=== PATIENT | female | born 1960 | race Caucasian/White ===

== ENCOUNTER 2018-06-03 14:36 | Emergency (ER) | payer SELFPAY ==
[2018-06-03 16:38] VITALS: BP 151/90
[2018-06-03 16:38] LABS: A TYPE INFLUENZA AG NEGATIVE (NEGATIVE); B INFLUENZA AG NEGATIVE (NEGATIVE)
[2018-06-03] MEDS ORDERED: ALBUTEROL SULFATE HFA (90 MCG/PUFF) 8 GM MDI (1 MDI/ER DISP) IH PRN (16:39)
--- NOTE | 2018-06-03 16:42 | ER Document Report ---
ED Medical Screen (RME) - General Chief Complaint: Flu Symptoms Stated Complaint: FLU SYMPTOMS Time Seen by Provider: 06/03/18 16:19 Mode of Arrival: Ambulatory Information source: Patient Notes: This is a 57-year-old female who presents to the emergency room with cough, congestion, sinus pressure for 10 days. Patient does report fever. She does states she has had a history of sinusitis in the past and it feels very similar to that and it has been lasting for a while now. Patient is a smoker. She does have a history of bronchitis. Patient does have some GI intolerance to Augmentin. TRAVEL OUTSIDE OF THE [place] IN LAST 30 DAYS: No - Related Data Allergies/Adverse Reactions: amoxicillin [From Augmentin] Adverse Reaction (Verified 06/03/18 16:27) clavulanic acid [From Augmentin] Adverse Reaction (Verified 06/03/18 16:27) Past Medical History - Social History Chew tobacco use (# tins/day): No Frequency of alcohol use: None Drug Abuse: None - Past Medical History Cardiac Medical History: Reports: Hx Hypertension Renal/ Medical History: Denies: Hx Peritoneal Dialysis Past Surgical History: Reports: Hx Orthopedic Surgery - 3 neck surgeries, 2bilat knee each Physical Exam - Vital signs Vitals: Temp Pulse Resp BP Pulse Ox 98.3 F 78 18 144/87 H 100 06/03/18 14:44 06/03/18 14:44 06/03/18 14:44 06/03/18 14:44 06/03/18 14:44 Course - Vital Signs Vital signs: Temp Pulse Resp BP Pulse Ox 98.5 F 85 18 171/102 H 96 06/03/18 16:35 06/03/18 16:35 06/03/18 16:35 06/03/18 16:35 06/03/18 16:35 Doctor's Discharge - Discharge Clinical Impression: Sinusitis acute maxillary Condition: Stable Disposition: HOME, SELF-CARE Instructions: Sinusitis ([facility]) Additional Instructions: Recommendations: Take the antibiotics as prescribed. Take the Mucinex as prescribed. Using inhaler: 2 puffs every 4-6 hours for wheezing or shortness of breath. As we discussed, try simply saline nasal spray: Keep the nasal passages open to allow the sinuses to drain. Follow-up with your primary care doctor when back home. Return to the emergency room for any shortness of breath or concerns that you are getting worse. Prescriptions: Cefuroxime Axetil [Ceftin 500 mg Tablet] 1 tab PO BID #20 tablet Guaifenesin [Mucinex] 600 mg PO BID #20 tablet.sa
--- NOTE | 2018-06-03 16:52 | ER Document Report ---
ED General - General Chief Complaint: Flu Symptoms Stated Complaint: FLU SYMPTOMS Time Seen by Provider: 06/03/18 16:19 Mode of Arrival: Ambulatory Information source: Patient Notes: 57-year-old female presents to the emergency room with maxillary sinus congestion and pain for 10 days. Patient does report cough with wheezing and a postnasal drip. Patient does report subjective fevers. TRAVEL OUTSIDE OF THE [place] IN LAST 30 DAYS: No - HPI Onset: Other - Past 10 days Onset/Duration: Gradual Quality of pain: Dull Severity: Mild Pain Level: 1 Associated symptoms: Chills, Nonproductive cough, Fever, Sinus pain/drainage, Other - Met and wheezing Exacerbated by: Denies Relieved by: Denies Similar symptoms previously: Yes Recently seen / treated by doctor: No - Related Data Allergies/Adverse Reactions: amoxicillin [From Augmentin] Adverse Reaction (Verified 06/03/18 16:27) clavulanic acid [From Augmentin] Adverse Reaction (Verified 06/03/18 16:27) Past Medical History - General Information source: Patient - Social History Smoking Status: Current Every Day Smoker Cigarette use (# per day): Yes - 1 pack/day Chew tobacco use (# tins/day): No Frequency of alcohol use: None Drug Abuse: None Lives with: Family Family History: None Patient has suicidal ideation: No Patient has homicidal ideation: No - Past Medical History Cardiac Medical History: Reports: Hx Hypertension Renal/ Medical History: Denies: Hx Peritoneal Dialysis Past Surgical History: Reports: Hx Orthopedic Surgery - 3 neck surgeries, 2bilat knee each Review of Systems - Review of Systems Constitutional: Chills, Fever EENT: See HPI Cardiovascular: denies: Chest pain, Palpitations, Heart racing Respiratory: Cough, Wheezing Gastrointestinal: No symptoms reported Genitourinary: No symptoms reported Female Genitourinary: No symptoms reported Musculoskeletal: No symptoms reported Skin: No symptoms reported Hematologic/Lymphatic: No symptoms reported Neurological/Psychological: No symptoms reported Physical Exam - Vital signs Vitals: Temp Pulse Resp BP Pulse Ox 98.3 F 78 18 144/87 H 100 06/03/18 14:44 06/03/18 14:44 06/03/18 14:44 06/03/18 14:44 06/03/18 14:44 Notes: Physical exam: GENERAL: Patient is alert and oriented x3, no acute distress. HEAD: Atraumatic, normocephalic. EYES: Pupils equal round and reactive to light, extraocular movements intact, sclera anicteric, conjunctiva are normal. ENT: Maxillary sinus tenderness. Evidence of postnasal drip in the oral cavity. Dentures. NECK: Normal range of motion, supple without obvious mass LUNGS: Guided wheezes bilaterally HEART: Regular rate and rhythm without murmurs, rubs or gallops. ABDOMEN: Soft, normoactive bowel sounds. No tenderness to palpation. No guarding, no rebound. No masses appreciated. EXTREMITIES: Normal range of motion, no pitting or edema. No clubbing or cyanosis. NEUROLOGICAL: Cranial nerves II through XII grossly intact. Normal speech, moving all extremities. PSYCH: Normal mood, normal affect. SKIN: Warm, Dry, normal turgor, no rashes or lesions noted. Course - Vital Signs Vital signs: Temp Pulse Resp BP Pulse Ox 98.5 F 85 18 151/90 H 96 06/03/18 16:35 06/03/18 16:35 06/03/18 16:35 06/03/18 16:37 06/03/18 16:35 Discharge - Discharge Clinical Impression: Sinusitis acute maxillary Condition: Stable Disposition: HOME, SELF-CARE Instructions: Sinusitis (REPLACED BY [facility]) Additional Instructions: Recommendations: Take the antibiotics as prescribed. Take the Mucinex as prescribed. Using inhaler: 2 puffs every 4-6 hours for wheezing or shortness of breath. As we discussed, try simply saline nasal spray: Keep the nasal passages open to allow the sinuses to drain. Follow-up with your primary care doctor when back home. Return to the emergency room for any shortness of breath or concerns that you are getting worse. Prescriptions: Cefuroxime Axetil [Ceftin 500 mg Tablet] 1 tab PO BID #20 tablet Guaifenesin [Mucinex] 600 mg PO BID #20 tablet.sa
== END 2018-06-03 16:45 | disposition home or self-care (01) ==
LOC: ER 14:36
DX: J01.00 Acute maxillary sinusitis, unspecified (principal); R09.81 Nasal congestion; R50.9 Fever, unspecified; R05 Cough; R09.82 Postnasal drip; J34.89 Other specified disorders of nose and nasal sinuses; R06.2 Wheezing; F17.210 Nicotine dependence, cigarettes, uncomplicated; I10 Essential (primary) hypertension
CPT/HCPCS: 99283; 87804; J3490

== ENCOUNTER 2019-01-13 07:09 | Emergency (ER) | payer SELFPAY ==
[2019-01-13] MEDS ORDERED: NORMAL SALINE 1000 ML 1,000 ML IV ONE (07:11)
--- NOTE | 2019-01-13 07:11 | ER Document Report ---
ED General - General Stated Complaint: ALTERED MENTAL STATUS Time Seen by Provider: 01/13/19 07:11 Notes: Patient is a 58-year-old female that presents to the emergency department for chief complaint of altered mental status and fever. History provided mainly by EMS and patient's who came to bedside. Patient had apparently been having some nausea and vomiting and cold and hot sweats according to the patient's , and yesterday she was calling out in the evening, seemed confused, and seemed to be worse this morning so they called EMS, according to E MS the patient was found to be tachycardic, altered, rather combative, she was given a total of 5 mg of Versed, which did seem to help with her agitation, they also gave her 2 mg of IV Ativan. She was noted to be in SVT according to the monitor, they did perform cardioversion, and gave her Cardizem as well, they did attempt to give her adenosine, 6, 12 and 12 mg, and eventually did have success with converting her to a sinus tachycardia. No other history obtainable at this time as the patient is altered and unable to provide any meaningful history. Past Medical History: Hypertension Past Surgical History: Neck surgery Social History: Living locally with and friends, but originally from [place]. Family History: Reviewed and noncontributory for presenting illness Allergies: Reviewed, see documented allergy list. REVIEW OF SYSTEMS: Complete review of systems is not obtainable secondary to the patient's altered state. PHYSICAL EXAMINATION: Vital signs reviewed, nursing noted reviewed. GENERAL: Patient is moaning, altered, GCS 13. HEAD: Atraumatic, normocephalic. EYES: Eyes appear normal, extraocular movements intact, sclera anicteric, conjunctiva are normal. PERRLA ENT: nares patent, oropharynx clear without exudates. Dry mucous membranes NECK: Normal range of motion, supple without lymphadenopathy, negative Kernig's and Brudzinski signs. LUNGS: Breath sounds clear to auscultation bilaterally and equal. No wheezes rales or rhonchi. HEART: Heart rate tachycardic, regular rhythm ABDOMEN: Soft, nontender, normoactive bowel sounds. No rebound, guarding, or rigidity. No masses appreciated. EXTREMITIES: Nontender, good range of motion, no pitting or edema. NEUROLOGICAL: GCS 13, moves all extremities spontaneously Motor and sensory grossly intact on exam. PSYCH: Confused, not answering questions, just moaning. SKIN: Warm, Dry, normal turgor, no rashes or lesions noted on exposed skin TRAVEL OUTSIDE OF THE [place] IN LAST 30 DAYS: No - Related Data Allergies/Adverse Reactions: amoxicillin [From Augmentin] Adverse Reaction (Verified 06/03/18 16:27) clavulanic acid [From Augmentin] Adverse Reaction (Verified 06/03/18 16:27) Past Medical History - Social History Smoking Status: Never Smoker Family History: None - Past Medical History Cardiac Medical History: Reports: Hx Hypertension Renal/ Medical History: Denies: Hx Peritoneal Dialysis Past Surgical History: Reports: Hx Orthopedic Surgery - 3 neck surgeries, 2bilat knee each Physical Exam - Vital signs Vitals: Resp BP Pulse Ox 16 118/78 93 01/13/19 08:01 01/13/19 08:01 01/13/19 08:01 Course - Re-evaluation Re-evalutation: Patient seen and examined vital signs reviewed. Laboratory data and imaging were ordered as appropriate for the patient's presenting symptoms and complaint, with consideration of any critical or life threatening conditions that may be associated with their obtained history and exam as noted above. Patient was treated with IV fluids as she appeared dehydrated, there is immediate concern for sepsis, given reported subjective fever, patient was e ncephalopathic, and prophylactically started on IV Rocephin, and vancomycin, and given 4 L of IV fluids, her blood pressure remained stable, she continued to be tachycardic. Attempt was made to perform lumbar puncture, however unsuccessful, due to patient's lack of cooperation, unable to obtain CSF, patient continued to be agitated and was getting worse, she was initially given IV Ativan 2 mg, she is given a second dose, but continued to be agitated and encephalopathic, becoming a harm and threat to herself, she then spiked a fever as well. At this point I decided to intubate the patient for her own protection, and for her acute illness, this was performed, and patient tolerated well. Results were reviewed when available and demonstrated leukocytosis, chest x-ray was negative for pneumonia, UA demonstrated signs of possible urinary tract infection, however I am concerned this patient may have meningitis or encephalitis, patient's skin became mottled, her blood pressure was stable th ough, her lactic acid was elevated at 2.7, again she was given plenty of IV fluids and maintaining a normal blood pressure. Patient was reevaluated again, her heart rate was in the 170s, and persisting, and looked like possible SVT on telemetry, EKG demonstrated what looked like SVT, patient was attempted be cardioverted, at 120 J, 150 J, and 200 J unsuccessfully, however when I did reveal the telemetry from the defibrillator monitor, it did appear that there were P waves buried in the T waves, this is likely sinus tachycardia, as opposed to intractable supraventricular tachycardia. From a cardiac standpoint, her troponin was elevated at 0.131, likely type II end STEMI, from supply demand mismatch due to her tachycardia, and sepsis. Patient's potassium was low at 2.8, and ordered IV 40 mEq of potassium. Patient's fever increased to 103 by Tripathi temperature, her groin and axilla were packed with ice, and she was given rectal Tylenol. Evaluation was most consistent with severe sepsis, toxic metabolic encephalopathy, suspect meningitis versus encephalitis, UTI, hypokalemia Patient has been at bedside, kept updated throughout this entire process, I discussed with him that I believe she needs transfer to higher level of care to a tertiary facility that has a ICU, with critical care medicine emergency worker, which they are agreeable to, I placed a call to [facility], discussed the case with Dr. Omalley, with the ICU, who graciously except the patient onto their service. He recommended adding acyclovir to her current medication regimen. *Note is created using voice recognition software and may contain spelling, syntax or grammatical errors. 01/13/19 12:54 [facility] air transport team has arrived, signout given, and report, patient is tachycardic at this time, blood pressure stable, stable on the ventilator. Microbiology 01/13/19 07:25 Urine Culture - Preliminary Catheterized Urine NO GROWTH IN 1 DAY Laboratory 01/13/19 01/13/19 01/13/19 07:15 07:15 07:15 WBC 21.5 H RBC 4.49 Hgb 14.3 Hct 42.2 MCV 94 MCH 31.8 MCHC 33.8 RDW 14.8 H Plt Count 200 Total Counted 100 Seg Neutrophils % Not Reportable Seg Neuts % (Manual) 76 Band Neutrophils % 6 H Lymphocytes % Not Reportable Lymphocytes % (Manual) 6 L Monocytes % Not Reportable Monocytes % (Manual) 10 Eosinophils % Not Reportable Eosinophils % (Manual) 0 Basophils % Not Reportable Basophils % (Manual) 0 Metamyelocytes % 2 H Absolute Neutrophils Not Reportable Abs Neuts (Manual) 18.1 H Absolute Lymphocytes Not Reportable Abs Lymphs (Manual) 1.3 Absolute Monocytes Not Reportable Abs Monocytes (Manual) 2.2 H Absolute Eosinophils Not Reportable Absolute Eos (Manual) 0.0 Absolute Basophils Not Reportable Abs Basophils (Manual) 0.0 Platelet Comment ADEQUATE RBC Morph Comment NORMO-CYTIC/CHROMIC PT 16.3 H INR 1.30 APTT Fibrinogen VBG pH VBG pCO2 VBG HCO3 VBG Base Excess Sodium 140.0 Potassium 2.8 L* Chloride 107 Carbon Dioxide 22 Anion Gap 11 BUN 17 Creatinine 1.17 Est GFR ( Amer) 58 L Est GFR (Non-Af Amer) 48 L Glucose 88 POC Glucose Lactic Acid Calcium 8.2 L Total Bilirubin 0.7 Direct Bilirubin 0.3 Neonat Total Bilirubin Not Reportable Neonat Direct Bilirubin Not Reportable Neonat Indirect Bili Not Reportable AST 58 H ALT 21 Alkaline Phosphatase 149 H Troponin I Total Protein 6.7 Albumin 3.3 L Urine Color Urine Appearance Urine pH Ur Specific Carnation Urine Protein Urine Glucose (UA) Urine Ketones Urine Blood Urine Nitrite Urine Bilirubin Urine Urobilinogen Ur Leukocyte Esterase Urine WBC (Auto) Urine RBC (Auto) U Hyaline Cast (Auto) Urine Bacteria (Auto) Urine WBC Clumps Urine Mucus (Auto) Urine Ascorbic Acid Urine Opiates Screen Urine Methadone Screen Ur Barbiturates Screen Ur Phencyclidine Scrn Ur Amphetamines Screen U Benzodiazepines Scrn Urine Cocaine Screen U Marijuana (THC) Screen 01/13/19 01/13/19 01/13/19 07:15 07:15 07:15 WBC RBC Hgb Hct MCV MCH MCHC RDW Plt Count Total Counted Seg Neutrophils % Seg Neuts % (Manual) Band Neutrophils % Lymphocytes % Lymphocytes % (Manual) Monocytes % Monocytes % (Manual) Eosinophils % Eosinophils % (Manual) Basophils % Basophils % (Manual) Metamyelocytes % Absolute Neutrophils Abs Neuts (Manual) Absolute Lymphocytes Abs Lymphs (Manual) Absolute Monocytes Abs Monocytes (Manual) Absolute Eosinophils Absolute Eos (Manual) Absolute Basophils Abs Basophils (Manual) Platelet Comment RBC Morph Comment PT INR APTT Fibrinogen VBG pH 7.36 VBG pCO2 33.5 L VBG HCO3 18.6 L VBG Base Excess -5.8 Sodium Potassium Chloride Carbon Dioxide Anion Gap BUN Creatinine Est GFR ( Amer) Est GFR (Non-Af Amer) Glucose POC Glucose Lactic Acid 2.7 H Calcium Total Bilirubin Direct Bilirubin Neonat Total Bilirubin Neonat Direct Bilirubin Neonat Indirect Bili AST ALT Alkaline Phosphatase Troponin I 0.131 Total Protein Albumin Urine Color Urine Appearance Urine pH Ur Specific Carnation Urine Protein Urine Glucose (UA) Urine Ketones Urine Blood Urine Nitrite Urine Bilirubin Urine Urobilinogen Ur Leukocyte Esterase Urine WBC (Auto) Urine RBC (Auto) U Hyaline Cast (Auto) Urine Bacteria (Auto) Urine WBC Clumps Urine Mucus (Auto) Urine Ascorbic Acid Urine Opiates Screen Urine Methadone Screen Ur Barbiturates Screen Ur Phencyclidine Scrn Ur Amphetamines Screen U Benzodiazepines Scrn Urine Cocaine Screen U Marijuana (THC) Screen 01/13/19 01/13/19 01/13/19 07:15 07:25 07:25 WBC RBC Hgb Hct MCV MCH MCHC RDW Plt Count Total Counted Seg Neutrophils % Seg Neuts % (Manual) Band Neutrophils % Lymphocytes % Lymphocytes % (Manual) Monocytes % Monocytes % (Manual) Eosinophils % Eosinophils % (Manual) Basophils % Basophils % (Manual) Metamyelocytes % Absolute Neutrophils Abs Neuts (Manual) Absolute Lymphocytes Abs Lymphs (Manual) Absolute Monocytes Abs Monocytes (Manual) Absolute Eosinophils Absolute Eos (Manual) Absolute Basophils Abs Basophils (Manual) Platelet Comment RBC Morph Comment PT INR APTT 38.3 H Fibrinogen 599 H VBG pH VBG pCO2 VBG HCO3 VBG Base Excess Sodium Potassium Chloride Carbon Dioxide Anion Gap BUN Creatinine Est GFR ( Amer) Est GFR (Non-Af Amer) Glucose POC Glucose Lactic Acid Calcium Total Bilirubin Direct Bilirubin Neonat Total Bilirubin Neonat Direct Bilirubin Neonat Indirect Bili AST ALT Alkaline Phosphatase Troponin I Total Protein Albumin Urine Color YELLOW Urine Appearance CLOUDY Urine pH 6.0 Ur Specific Carnation 1.012 Urine Protein >=500 H Urine Glucose (UA) NEGATIVE Urine Ketones NEGATIVE Urine Blood LARGE H Urine Nitrite NEGATIVE Urine Bilirubin NEGATIVE Urine Urobilinogen NEGATIVE Ur Leukocyte Esterase LARGE H Urine WBC (Auto) >182 Urine RBC (Auto) 16 U Hyaline Cast (Auto) 4 Urine Bacteria (Auto) 3+ Urine WBC Clumps MANY Urine Mucus (Auto) RARE Urine Ascorbic Acid NEGATIVE Urine Opiates Screen NEGATIVE Urine Methadone Screen NEGATIVE Ur Barbiturates Screen NEGATIVE Ur Phencyclidine Scrn NEGATIVE Ur Amphetamines Screen NEGATIVE U Benzodiazepines Scrn UNCONFIRMED POSITIVE Urine Cocaine Screen NEGATIVE U Marijuana (THC) Screen UNCONFIRMED POSITIVE 01/13/19 08:02 WBC RBC Hgb Hct MCV MCH MCHC RDW Plt Count Total Counted Seg Neutrophils % Seg Neuts % (Manual) Band Neutrophils % Lymphocytes % Lymphocytes % (Manual) Monocytes % Monocytes % (Manual) Eosinophils % Eosinophils % (Manual) Basophils % Basophils % (Manual) Metamyelocytes % Absolute Neutrophils Abs Neuts (Manual) Absolute Lymphocytes Abs Lymphs (Manual) Absolute Monocytes Abs Monocytes (Manual) Absolute Eosinophils Absolute Eos (Manual) Absolute Basophils Abs Basophils (Manual) Platelet Comment RBC Morph Comment PT INR APTT Fibrinogen VBG pH VBG pCO2 VBG HCO3 VBG Base Excess Sodium Potassium Chloride Carbon Dioxide Anion Gap BUN Creatinine Est GFR ( Amer) Est GFR (Non-Af Amer) Glucose POC Glucose 78 Lactic Acid Calcium Total Bilirubin Direct Bilirubin Neonat Total Bilirubin Neonat Direct Bilirubin Neonat Indirect Bili AST ALT Alkaline Phosphatase Troponin I Total Protein Albumin Urine Color Urine Appearance Urine pH Ur Specific Carnation Urine Protein Urine Glucose (UA) Urine Ketones Urine Blood Urine Nitrite Urine Bilirubin Urine Urobilinogen Ur Leukocyte Esterase Urine WBC (Auto) Urine RBC (Auto) U Hyaline Cast (Auto) Urine Bacteria (Auto) Urine WBC Clumps Urine Mucus (Auto) Urine Ascorbic Acid Urine Opiates Screen Urine Methadone Screen Ur Barbiturates Screen Ur Phencyclidine Scrn Ur Amphetamines Screen U Benzodiazepines Scrn Urine Cocaine Screen U Marijuana (THC) Screen Chest X-Ray 01/13/19 07:12 IMPRESSION: NO ACUTE RADIOGRAPHIC FINDING IN THE CHEST. Head CT 01/13/19 07:23 IMPRESSION: NORMAL BRAIN CT WITHOUT CONTRAST. EVIDENCE OF ACUTE STROKE: NO. - Vital Signs Vital signs: Temp Pulse Resp BP Pulse Ox 21 H 150/78 H 97 01/13/19 12:46 01/13/19 12:46 01/13/19 12:52 - Laboratory Result Diagrams: 01/13/19 07:15 01/13/19 07:15 Laboratory results interpreted by me: 01/13/19 01/13/19 01/13/19 07:15 07:15 07:15 WBC 21.5 H RDW 14.8 H Band Neutrophils % 6 H Lymphocytes % (Manual) 6 L Metamyelocytes % 2 H Abs Neuts (Manual) 18.1 H Abs Monocytes (Manual) 2.2 H PT 16.3 H APTT Fibrinogen VBG pCO2 VBG HCO3 Potassium 2.8 L* Est GFR ( Amer) 58 L Est GFR (Non-Af Amer) 48 L Lactic Acid Calcium 8.2 L AST 58 H Alkaline Phosphatase 149 H Albumin 3.3 L Urine Protein Urine Blood Ur Leukocyte Esterase 01/13/19 01/13/19 01/13/19 07:15 07:15 07:15 WBC RDW Band Neutrophils % Lymphocytes % (Manual) Metamyelocytes % Abs Neuts (Manual) Abs Monocytes (Manual) PT APTT 38.3 H Fibrinogen 599 H VBG pCO2 33.5 L VBG HCO3 18.6 L Potassium Est GFR ( Amer) Est GFR (Non-Af Amer) Lactic Acid 2.7 H Calcium AST Alkaline Phosphatase Albumin Urine Protein Urine Blood Ur Leukocyte Esterase 01/13/19 07:25 WBC RDW Band Neutrophils % Lymphocytes % (Manual) Metamyelocytes % Abs Neuts (Manual) Abs Monocytes (Manual) PT APTT Fibrinogen VBG pCO2 VBG HCO3 Potassium Est GFR ( Amer) Est GFR (Non-Af Amer) Lactic Acid Calcium AST Alkaline Phosphatase Albumin Urine Protein >=500 H Urine Blood LARGE H Ur Leukocyte Esterase LARGE H - EKG Interpretation by Me Additional EKG results interpreted by me: EKG demonstrates junctional tachycardia with a ventricular rate of 143 bpm, normal axis, QTC 451 ms, no ST elevation. No prior for comparison. Repeat EKG performed at 1224, demonstrated what appeared to be superventricular tachycardia with a ventricular rate of 171 bpm, normal axis, QTC 527 ms, no change from prior 30 EKG was performed at 1226, after attempted cardioversion at 200 J, and demonstrates what appears to be again as likely sinus tachycardia, with very T waves, that does appear to look like supraventricular tachycardia, with a vent ricular rate of 171 bpm, normal axis, QTC 527 ms, no ST elevation. Procedures - Intubation Orotracheal Airway evaluation: Large tongue, Obese Mallampati Classification: Class 2 Medications: Etomidate - 20mg, Other - Rocuronium 70mg Intubation method: Orotracheal Blade size: 4 Equipment used: Glidescope ETT size: 7.5 ETT secured at: Lips ETT secured at (cm): 23 Breath Sounds after Intubation: Equal End tidal CO2 confirmed: Yes Ventilator settings: SIMV Post Intubation Xray: Yes Intubation Complications: No complications - Lumbar Puncture Lumbar puncture Consent obtained: Yes Lumbar puncture pre-procedure: Sterile PPE donned, Betadine prep applied, Sterile drapes applied Patient position: Lying Needle size: 22 Lumbar puncture location: L4 Anesthetic type: 1% Lidocaine mL's of anesthetic: 3 Amount/type of drainage: 0 Number of attempts: 2 Notes: After 2 attempts, CSF was not able to be obtained, first attempt did have a bloody tap, with a few drops of blood, at this point the procedure was discon tinued, due to not successful at times, will consult eventual radiology to assist in obtaining CSF fluid. - Additional Procedures Cardioversion/Defib Additional Procedures: Cardioversion/defib - Patient was attempted to be synchronized DC cardioverted, on 3 different occasions, initially at 120 J, again at 150 J, and then a third time at 200 J. Critical Care Note - Critical Care Note Total time excluding time spent on procedures (mins): 120 Comments: Critical care time 120 minutes exclusive from separate billable procedures for a patient requiring complex medical decision making, and high potential for clinical deterioration. In a patient presenting is septic, concern for meningitis, requiring intubation, frequent reassessments, discussing with consultants and family, and ultimately transfer to tertiary facility.. Time spent obtaining history from patient or surrogate, discussions with consultants, development of treatment plan with patient or surrogate, evaluation of patient's response to treatment, examination of patient, ordering and performing treatments and interventions, ordering and review of laboratory studies, re-evaluation of patient's condition, ordering and review of radiographic studies and review of old charts Discharge - Discharge Clinical Impression: Severe sepsis, Metabolic encephalopathy, Hypokalemia UTI (urinary tract infection) Qualifiers: Urinary tract infection type: site unspecified Hematuria presence: with hematuria Qualified Code(s): N39.0 - Urinary tract infection, site not specified; R31.9 - Hematuria, unspecified Acute respiratory failure Qualifiers: Respiratory failure complication: hypoxia Qualified Code(s): J96.01 - Acute respiratory failure with hypoxia Leukocytosis Qualifiers: Leukocytosis type: unspecified Qualified Code(s): D72.829 - Elevated white blood cell count, unspecified Condition: Critical Disposition: [facility]
[2019-01-13] MEDS ORDERED: ONDANSETRON HCL INJ/PF 4 MG/2 ML SDV IV ONE (07:13)
[2019-01-13] MEDS ORDERED: LORAZEPAM INJ 2 MG/1 ML VIAL ONE (07:17)
[2019-01-13] MEDS ORDERED: LORAZEPAM INJ 2 MG/1 ML VIAL IV ONE ×2 (07:17→09:58)
[2019-01-13] MEDS ORDERED: RINGERS SOLUTION,LACTATED 1,000 ML IV ONE ×3 (07:21→10:59)
[2019-01-13 07:33] LABS: HEMATOCRIT 42.2 % (36.0-47.0); HEMOGLOBIN 14.3 g/dL (12.0-15.5); MEAN CORPUSCULAR HEMOGLOBIN 31.8 pg (27.0-33.4); MEAN CORPUSCULAR HGB CONC 33.8 g/dL (32.0-36.0); MEAN CORPUSCULAR VOLUME 94 fl (80-97); PLATELET COUNT 200 10^3/uL (150-450); RED BLOOD COUNT 4.49 10^6/uL (3.72-5.28); RED CELL DISTRIBUTION WIDTH 14.8 % (11.5-14.0); WHITE BLOOD COUNT 21.5 10^3/uL (4.0-10.5)
[2019-01-13 07:34] LABS: VENOUS BLOOD BASE EXCESS -5.8 mmol/L; VENOUS BLOOD HCO3 18.6 mmol/L (20-32); VENOUS BLOOD PCO2 33.5 mmHg (35-63); VENOUS BLOOD PH 7.36 (7.30-7.42)
[2019-01-13 07:36] LABS: PROTHROMBIN TIME 16.3 SEC (11.4-15.4)
[2019-01-13 07:54] LABS: ALANINE AMINOTRANSFERASE 21 U/L (9-52); ALBUMIN 3.3 g/dL (3.5-5.0); ALKALINE PHOSPHATASE 149 U/L (38-126); ANION GAP 11 (5-19); ASPARTATE AMINO TRANSFERASE 58 U/L (14-36); BILIRUBIN,DIRECT 0.3 mg/dL (0.0-0.4); BILIRUBIN,TOTAL 0.7 mg/dL (0.2-1.3); BLOOD UREA NITROGEN 17 mg/dL (7-20); CALCIUM 8.2 mg/dL (8.4-10.2); CARBON DIOXIDE 22 mmol/L (22-30); CHLORIDE 107 mmol/L (98-107); GLUCOSE 88 mg/dL (75-110); TOTAL PROTEIN 6.7 g/dL (6.3-8.2)
[2019-01-13 07:54] LABS: APPEARANCE,URINE CLOUDY; BILIRUBIN,URINE NEGATIVE (NEGATIVE); COLOR,URINE YELLOW; GLUCOSE, URINE NEGATIVE (NEGATIVE); KETONES,URINE NEGATIVE (NEGATIVE); LEUKOCYTE ESTERASE,URINE LARGE (NEGATIVE); NITRITE,URINE NEGATIVE (NEGATIVE); PROTEIN,URINE >=500 mg/dL (NEGATIVE); URINE SPECIFIC GRAVITY 1.012; UROBILINOGEN,URINE NEGATIVE mg/dL (<2.0)
[2019-01-13] MEDS ORDERED: LIDOCAINE 1% INJ-PF (10 MG/ML) 30 ML SDV INJ ONE (07:57)
[2019-01-13] MEDS ORDERED: VANCOMYCIN HCL INJ 1000 MG VIAL IV ONE (07:57)
[2019-01-13] MEDS ORDERED: CEFTRIAXONE 2 GM/D5W RTU 2 GM/50 ML RTUPB IV ONE (07:57)
[2019-01-13 08:07] LABS: POTASSIUM 2.8 mmol/L (3.6-5.0)
[2019-01-13 08:09] LABS: ABSOLUTE LYMPHOCYTES# (MANUAL) 1.3 10^3/uL (0.5-4.7); ABSOLUTE MONOCYTES # (MANUAL) 2.2 10^3/uL (0.1-1.4); BAND NEUTROPHILS % (MANUAL) 6 % (3-5); BASOPHILS % (MANUAL) 0 % (0-2); EOSINOPHILS % (MANUAL) 0 % (0-6); LYMPHOCYTES % (MANUAL) 6 % (13-45); METAMYELOCYTES % (MANUAL) 2 % (0); MONOCYTES % (MANUAL) 10 % (3-13); SEGMENTED NEUTROPHILS % (MAN) 76 % (42-78); TOTAL CELLS COUNTED 100
[2019-01-13 08:10] LABS: PLATELET COMMENT ADEQUATE; RBC MORPHOLOGY COMMENT NORMO-CYTIC/CHROMIC
--- NOTE | 2019-01-13 08:50 | RADIOLOGY REPORT (SQ) ---
EXAM DESCRIPTION: CT HEAD WITHOUT COMPLETED DATE/TIME: 01/13/2019 8:36 am REASON FOR STUDY: altered mental status COMPARISON: None. TECHNIQUE: Axial images acquired through the brain without intravenous contrast. Images reviewed wi th bone, brain and subdural windows. Additional sagittal and coronal reconstructions were generated. Images stored on PACS. All CT scanners at this facility use dose modulation, iterative reconstruction, and/or weight based d osing when appropriate to reduce radiation dose to as low as reasonably achievable (ALARA). [facility]: Dose Right [facility]: CareDose [facility]: Dose Right [facility]: Teradose 4D [facility]: FMS [place] RADIATION DOSE: CT Rad equipment meets quality standard of care and radiation dose reduction techniq ues were employed. CTDIvol: 53.2 mGy. DLP: 2034 mGy-cm. mGy. LIMITATIONS: Motion artifact. FINDINGS: VENTRICLES: Normal size and contour. CEREBRUM: No masses. No hemorrhage. No midline shift. No evidence for acute infarction. Normal gra y/white matter differentiation. No areas of low density in the white matter. CEREBELLUM: No masses. No hemorrhage. No alteration of density. No evidence for acute infarction. EXTRAAXIAL SPACES: No fluid collections. No masses. ORBITS AND GLOBE: No intra- or extraconal masses. Normal contour of globe without masses. CALVARIUM: No fracture. PARANASAL SINUSES: No fluid or mucosal thickening. SOFT TISSUES: No mass or hematoma. OTHER: No other significant finding. IMPRESSION: NORMAL BRAIN CT WITHOUT CONTRAST. EVIDENCE OF ACUTE STROKE: NO. COMMENT: Quality ID # [id number]: Final reports with documentation of one or more dose reduction techniques (e.g., Automated exposure control, adjustment of the mA and/or kV according to patient size, use of iterative reconstruction technique) TECHNICAL DOCUMENTATION: JOB ID: [id number] [email or web address]- All Rights Reserved Reading location - IP/workstation name: [email or web address]
--- NOTE | 2019-01-13 09:13 | RADIOLOGY REPORT (SQ) ---
EXAM DESCRIPTION: CHEST SINGLE VIEW COMPLETED DATE/TIME: 01/13/2019 8:34 am REASON FOR STUDY: svt COMPARISON: None. EXAM PARAMETERS: NUMBER OF VIEWS: One view. TECHNIQUE: Single frontal radiographic view of the chest acquired. RADIATION DOSE: NA LIMITATIONS: None. FINDINGS: LUNGS AND PLEURA: No opacities, masses or pneumothorax. No pleural effusion. MEDIASTINUM AND HILAR STRUCTURES: No masses. Contour normal. HEART AND VASCULAR STRUCTURES: Heart normal in size. Normal vasculature. BONES: No acute findings. HARDWARE: None in the chest. OTHER: No other significant finding. IMPRESSION: NO ACUTE RADIOGRAPHIC FINDING IN THE CHEST. TECHNICAL DOCUMENTATION: JOB ID: [id number] [employer]- All Rights Reserved Reading location - IP/workstation name: [email or web address]
[2019-01-13 09:15] LABS: URINE AMPHETAMINES SCREEN NEGATIVE; URINE BARBITURATES SCREEN NEGATIVE; URINE BENZODIAZEPINES SCREEN UNCONFIRMED POSITIVE; URINE COCAINE SCREEN NEGATIVE; URINE MARIJUANA (THC) SCREEN UNCONFIRMED POSITIVE; URINE METHADONE SCREEN NEGATIVE; URINE PHENCYCLIDINE SCREEN NEGATIVE
[2019-01-13] MEDS: POTASSI CL 20 MEQ/50 ML RIDER 20 MEQ/50 ML RTUPB IV SCH ×2 (09:36→11:36)
[2019-01-13] MEDS ORDERED: ETOMIDATE INJ/PF 20 MG/10 ML SDV IV ONE ×2 (10:39→11:11)
[2019-01-13] MEDS ORDERED: PROPOFOL 1,000 MG/100 ML INFUS..BTL IV ONE (10:42)
[2019-01-13] MEDS ORDERED: ROCURONIUM BROMIDE INJ 50 MG/5 ML VIAL IV ONE ×2 (10:42→20:05)
[2019-01-13] MEDS ORDERED: PROPOFOL 1,000 MG/100 ML INFUS..BTL IV PRN (10:43)
[2019-01-13] MEDS ORDERED: ACETAMINOPHEN 325 MG SUPP.RECT PR ONE (10:44)
[2019-01-13] MEDS ORDERED: FENTANYL CITRATE INJ/PF 100 MCG/2 ML AMPUL ONE (10:54)
[2019-01-13] MEDS ORDERED: ACYCLOVIR SODIUM INJ/PF 500 MG/10 ML SDV IV ONE (11:04)
[2019-01-13 11:05] LABS: PARTIAL THROMBOPLASTIN TIME 38.3 SEC (23.5-35.8)
--- NOTE | 2019-01-13 11:45 | RADIOLOGY REPORT (SQ) ---
EXAM DESCRIPTION: CHEST SINGLE VIEW COMPLETED DATE/TIME: 01/13/2019 11:25 am REASON FOR STUDY: tube placement COMPARISON: Earlier the same day. NUMBER OF VIEWS: One view. TECHNIQUE: Single frontal radiographic image of the chest acquired. LIMITATIONS: Overlying support apparatus. FINDINGS: LUNGS AND PLEURA: No significant change. No pneumothorax. MEDIASTINUM AND HEART: Stable heart size and mediastinal structures. SUPPORT DEVICES: Endotracheal tube tip between thoracic inlet and kelsie. Nasogastric tube extends i nto the left upper quadrant. BONY STRUCTURES: No acute findings. HARDWARE: None. OTHER: No other significant finding. IMPRESSION: Satisfactory position of support apparatus. No pneumothorax. Reading location - IP/workstation name: [email or web address]
[2019-01-13] MEDS ORDERED: RINGERS SOLUTION,LACTATED 1,000 ML IV PRN (12:44)
[2019-01-13 13:38] VITALS: BP 150/78
--- NOTE | 2019-01-14 18:20 | EKG REPORT ---
SEVERITY:- ABNORMAL ECG - SUPRAVENTRICULAR TACHYCARDIA 173. PROBABLE INFERIOR INFARCT, AGE INDETERMINATE LA ENLARGEMENT PVC : Confirmed by: Owen Torrez MD 14-Jan-2019 18:20:23
--- NOTE | 2019-01-14 18:21 | EKG REPORT ---
SEVERITY:- ABNORMAL ECG - SUPRAVENTRICULAR TACHYCARDIA 171. PROBABLE INFERIOR INFARCT, OLD LEFT ATRIAL ABNORMALITY : Confirmed by: Owen Torrez MD 14-Jan-2019 18:21:19
--- NOTE | 2019-01-14 18:23 | EKG REPORT ---
SEVERITY:- ABNORMAL ECG - SINUS TACHYCARDIA 143 = SVT CONVERTED. PROBABLE INFERIOR INFARCT, AGE INDETERMINATE : Confirmed by: Owen Torrez MD 14-Jan-2019 18:22:59
== END 2019-01-13 12:30 | disposition short-term general hospital (02) ==
LOC: ER 07:09
DX: A41.9 Sepsis, unspecified organism (principal); R65.20 Severe sepsis without septic shock; N39.0 Urinary tract infection, site not specified; R31.9 Hematuria, unspecified; J96.01 Acute respiratory failure with hypoxia; G93.41 Metabolic encephalopathy; E87.6 Hypokalemia; R00.0 Tachycardia, unspecified; R11.2 Nausea with vomiting, unspecified; R45.1 Restlessness and agitation; R41.0 Disorientation, unspecified; I10 Essential (primary) hypertension; R61 Generalized hyperhidrosis; R50.9 Fever, unspecified; D72.829 Elevated white blood cell count, unspecified; R79.89 Other specified abnormal findings of blood chemistry
CPT/HCPCS: 93005; 99291; 99292; 96361; 96375; 96365; 96366; 96367; 96368; 36415; 87040; 87086; 82962; 85025; 85384; 85610; 85730; 87077; 87088; 80053; 81001; 84484; 87186; 80307; 82803; 83605; 71045; 70450; 94660; 93010; 31500; 62270; J3490 ×3; J0133; J3010; J2704; J2060; J2405; J3480; J7030; J7120; J3370; J0696